=== PATIENT | female | born 1960 | race Caucasian/White ===

== ENCOUNTER 2023-06-02 08:29 | Day surgery (SDC) | payer BC, MEDICAID, OTHER ==
[2023-06-02] MEDS: Lactated Ringers 1,000 ML IV SCH (08:52)
[2023-06-02] MEDS ORDERED: Midazolam 1 MG/ML 2 ML SDV ONE (10:14)
[2023-06-02] MEDS ORDERED: fentaNYL 100 MCG/2 ML SDV ONE (10:14)
[2023-06-02] MEDS ORDERED: Propofol 200 MG/20 ML SDV ONE (10:14)
== END 2023-06-02 11:40 | disposition home or self-care (01) ==
LOC: VM.SDS 08:29
PROVIDERS: ATTEND Family Medicine
DX: D12.0 Benign neoplasm of cecum (principal); D12.6 Benign neoplasm of colon, unspecified; K63.5 Polyp of colon; F41.1 Generalized anxiety disorder; F33.1 Major depressive disorder, recurrent, moderate; K21.9 Gastro-esophageal reflux disease without esophagitis; G25.81 Restless legs syndrome; J45.20 Mild intermittent asthma, uncomplicated; Z87.891 Personal history of nicotine dependence; Z79.899 Other long term (current) drug therapy; Z88.0 Allergy status to penicillin; Z88.5 Allergy status to narcotic agent
CPT/HCPCS: 00812; J2250; J2704; J3010; J7120